=== PATIENT | female | born 1950 | race Caucasian/White ===

== ENCOUNTER 2017-09-25 16:39 | Emergency (ER) | payer MEDICARE, BC ==
[2017-09-25 17:43] VITALS: BP 136/72
--- NOTE | 2017-09-25 18:19 | UC ---
Skin Complaint HPI - HPI Summary HPI Summary: right upper ear and skin tenderness of the right roman catholic and face. There is some redness as well. no drainage from the Ear. She has had high sugars lately but it is improving with long acting insulin. - History of Current Complaint Chief Complaint: UCSkin Time Seen by Provider: 09/25/17 18:04 Stated Complaint: SWOLLEN GLANDS RIGHT SIDE/EAR PAIN Hx Obtained From: Patient, Family/Crab Catcher Hx Last Menstrual Period: n/a ?: No Onset/Duration: Gradual Onset, Lasting Days Skin Exposure Onset/Duration: Days Ago Timing: Constant Onset Severity: Mild Current Severity: Moderate Location: Ear (Right) Aggravating Factor(s): Touch Alleviating Factor(s): Nothing Associated Signs & Symptoms: Positive: Tenderness - Allergy/Home Medications Allergies/Adverse Reactions: Allergies Allergy/AdvReac Type Severity Reaction Status Date / Time broad spectrum antbiotics Allergy Vomiting Uncoded 09/25/17 17:43 Home Medications: Home Medications Insulin Glargine (Nf) [Toujeo Solostar Pen (NF)] 60 unit SUBCUT DAILY 09/25/17 [ History Confirmed 09/25/17] Review of Systems Skin: Other - tenderness and redness of the ear and the surrounding areas. All Other Systems Reviewed And Are Negative: Yes PMH/Surg Hx/FS Hx/Imm Hx Previously Healthy: No Endocrine History: Diabetes - Surgical History Surgical History: Yes Surgery Procedure, Year, and Place: Tonsillectomy. tubal ligation. gila. colon resection for benign polyp - Family History Known Family History: Positive: Other - no related skin infection history. - Social History Lives: With Family Alcohol Use: Rare Substance Use Type: None Smoking Status (MU): Former Smoker Type: Cigarettes When Did the Patient Quit Smoking/Using Tobacco: 2012 - Immunization History Most Recent Influenza Vaccination: yes 2017 Physical Exam Triage Information Reviewed: Yes Appearance: Well-Appearing, No Pain Distress, Obese Vital Signs: Initial Vital Signs Temp 98.9 F 09/25/17 17:37 Pulse 82 09/25/17 17:37 Resp 16 09/25/17 17:37 BP 136/72 09/25/17 17:37 Pulse Ox 98 09/25/17 17:37 Vital Signs Reviewed: Yes Eye Exam: Normal Eyes: Positive: Conjunctiva Clear ENT Exam: Other - right pinna tenderness and redness. there is some small pink skin and redness of the skin surrounding the ear. ENT: Positive: Normal ENT inspection, Pharynx normal, TMs normal. Negative: Pharyngeal erythema, Nasal congestion, TM bulging, TM dull, TM red, Tonsillar swelling, Tonsillar exudate, Trismus Neck exam: Normal Neck: Positive: Supple, Nontender, No Lymphadenopathy Respiratory Exam: Normal Respiratory: Positive: Chest non-tender, Lungs clear, Normal breath sounds, No respiratory distress, No accessory muscle use Cardiovascular Exam: Normal Cardiovascular: Positive: RRR, No Murmur, Pulses Normal Abdominal Exam: Normal Abdomen Description: Positive: Nontender, No Organomegaly, Soft Musculoskeletal Exam: Normal Musculoskeletal: Positive: Strength Intact, ROM Intact, No Edema Neurological Exam: Normal Neurological: Positive: Alert, Muscle Tone Normal. Negative: Fatigued Psychological: Positive: Normal Response To Family, Age Appropriate Behavior Skin Exam: Other - right ear redness. Course/Dx - Diagnoses Provider Diagnoses: right ear and roman catholic cellulitis. Discharge - Discharge Plan Condition: Good Disposition: HOME Prescriptions: Ciproflox/Dexameth OTIC.SUSP* [Ciprodex OTIC.SUSP*] 4 drop .SEE ORDER QID #1 btl DOXYcycline CAP(*) [DOXYcycline 100MG CAP(*)] 100 mg PO BID #20 cap Patient Education Materials: Cellulitis (ED) Referrals: Frank Crystal MD [Primary Care Provider] - 2 Days
== END 2017-09-25 18:19 | disposition home or self-care (01) ==
LOC: UCCORT 16:39
DX: H60.11 Cellulitis of right external ear (principal); E11.9 Type 2 diabetes mellitus without complications; Z88.1 Allergy status to other antibiotic agents; Z87.891 Personal history of nicotine dependence
CPT/HCPCS: 99212; G0463

== ENCOUNTER 2018-07-24 10:15 | Emergency (ER) | payer MEDICARE, BC ==
--- NOTE | 2018-07-24 10:33 | UC ---
Ear Complaint HPI - HPI Summary HPI Summary: 67 year old female with left ear complaint. LEFT EAR EXTERNAL SWELLING REDNESS X2 DAYS SOME SWELLING AROUND THE EAR, NO DRAINAGE, SLIGHTLY PAINFUL TO TOUCH. No fever. No hearing loss. No vertigo. Has had this a year ago and had to take antibiotics and it resolved the condition. Is using steroid topical at this time from PCP and not much help. [ End ] - History of Current Complaint Stated Complaint: LEFT EAR CONCERN Time Seen by Provider: 07/24/18 10:30 Hx Obtained From: Patient Hx Last Menstrual Period: n/a Onset/Duration: Gradual Onset Severity Initially: Mild Severity Currently: Mild - Allergies/Home Medications Allergies/Adverse Reactions: Allergies Allergy/AdvReac Type Severity Reaction Status Date / Time broad spectrum antbiotics Allergy Vomiting Uncoded 09/25/17 17:43 Home Medications: Home Medications Clobetasol 0.05% OINT* 1 applic TOPICAL BID PRN 07/24/18 [History Confirmed ] Fluocinolone Acetonide 1 drop BOTH EARS DAILY 07/24/18 [History Confirmed ] Insulin Glargine (Nf) [Toujeo Solostar Pen (NF)] 70 units INJ BEDTIME 07/24/18 [ History Confirmed 07/24/18] Liraglutide [Victoza 3-Obi] 1.8 mg INJ DAILY 07/24/18 [History Confirmed ] Mometasone NASAL (NF) [Nasonex (NF)] 2 spray BOTH NARES DAILY 07/24/18 [History Confirmed 07/24/18] Lead-3 Acid Ethyl Esters [Lovaza] 1 gm PO DAILY 07/24/18 [History Confirmed ] PMH/Surg Hx/FS Hx/Imm Hx Previously Healthy: Yes Endocrine History: Diabetes, Dyslipidemia Cardiovascular History: Hypertension - Surgical History Surgical History: Yes Surgery Procedure, Year, and Place: Tonsillectomy. tubal ligation. choley. colon resection for benign polyp - Family History Known Family History: Positive: Other - no related skin infection history. - Social History Lives: With Family Alcohol Use: Rare Substance Use Type: None Smoking Status (MU): Former Smoker Type: Cigarettes When Did the Patient Quit Smoking/Using Tobacco: 2012 - Immunization History Most Recent Influenza Vaccination: yes 2016 Review of Systems ENT: Ear Ache Is Patient Immunocompromised?: No All Other Systems Reviewed And Are Negative: Yes Physical Exam Triage Information Reviewed: Yes Appearance: Well-Appearing, No Pain Distress, Well-Nourished Vital Signs Reviewed: Yes Eye Exam: Normal ENT Exam: Normal ENT: Positive: TM bulging - some ear wax and ear canal swelling, TM dull - left , Other - right ear with dry excoriated skin left hamlet Left ear with diffuse swelling whole ear and mild swelling ear canal . some indurated skin proximal to the ear as well. left posterior mild lymph node involvement. tenderness to palpation of the ear.. Negative: Nasal congestion, Nasal drainage Neck exam: Normal Neck: Positive: 1 Respiratory Exam: Normal Cardiovascular Exam: Normal Musculoskeletal Exam: Normal Neurological Exam: Normal Psychological Exam: Normal Skin Exam: Normal Ear Complaint Course/Dx - Course Course Of Treatment: no fever. no discharge. no obvious mastoiditis. per pt history of bacterial infection of the ear previously requiring amox will start at this time and advise f/u with PCP and go to ED if sx worsen . she is aware and agree to plan and aware of SE fo meds. No hearing loss. pain is mild and mostly with palpation. can double her antihistamine as well as she states her allegy has been worsened as of late too . given info for mastoiditis to be aware of what to look for if Sx worsen . she is requesting antibiotics at this time and agreeable with plan and go to ED if any concerns. no red flags - Differential Dx/Diagnosis Differential Diagnosis/HQI/PQRI: Cerumen Impaction, Otitis Externa, Otitis Media , Perforated TM Provider Diagnoses: left external ear infection. serous otitis. cauliflower ear left Discharge - Sign-Out/Discharge Documenting (check all that apply): Patient Departure All imaging exams completed and their final reports reviewed: No Studies - Discharge Plan Condition: Good Disposition: HOME Prescriptions: Amoxicillin PO (*) [Amoxicillin 875 MG (*)] 875 mg PO BID 10 Days #20 tab Patient Education Materials: Serous Otitis Media (ED), Mastoiditis (ED) Referrals: Frank Crystal MD [Primary Care Provider] - 4 Days Additional Instructions: You are advised to start antibiotics for your infection and if your symptoms worsen please go to the emergency room - Billing Disposition and Condition Condition: GOOD Disposition: Home
[2018-07-24 10:39] VITALS: BP 156/68
== END 2018-07-24 11:06 | disposition home or self-care (01) ==
LOC: UCCORT 10:15
DX: H60.392 Other infective otitis externa, left ear (principal); H65.92 Unspecified nonsuppurative otitis media, left ear; M95.12 Cauliflower ear, left ear; Z88.1 Allergy status to other antibiotic agents; E11.9 Type 2 diabetes mellitus without complications; Z79.4 Long term (current) use of insulin; I10 Essential (primary) hypertension; Z87.891 Personal history of nicotine dependence
CPT/HCPCS: 99212; G0463

== ENCOUNTER 2021-02-22 10:24 | Inpatient (IN) ==
[2021-02-22] MEDS ORDERED: NS 0.9% 1000 ml BAG 500 ML IV ONE (10:33)
[2021-02-22 10:49] LABS: ABS Lymphocytes 0.2 10^3/ul (1.0-4.8); ABS Monocytes 0.4 10^3/ul (0-0.8); ABS Neutrophils 3.4 10^3/ul (1.5-7.7); Eosinophil % 0.5 %; Hematocrit 29 % (35-47); Hemoglobin 9.7 g/dL (12.0-16.0); Mean Corpuscular HGB Conc 34 g/dL (31-36); Mean Corpuscular Hemoglobin 27 pg (27-31); Mean Corpuscular Volume 81 fL (80-97); Nucleated Red Blood Cells % 0.1; Platelet Count 415 10^3/uL (150-450); Red Blood Count 3.55 10^6 /uL (3.70-4.87); Red Cell Distribution Width 19 % (10-15); White Blood Count 4.1 10^3/uL (3.5-10.8)
[2021-02-22] MEDS ORDERED: Iodixanol (CONTRAST) 320 MG/ML 100 ML SDV IV ONE (11:03)
[2021-02-22 11:23] LABS: ALT 18 U/L (7-52); AST 33 U/L (13-39); Albumin 3.9 g/dL (3.2-5.2); Albumin/Globulin Ratio 1.4 (1-3); Alkaline Phosphatase 51 U/L (34-104); Anion Gap 15 mmol/L (2-11); BUN/Creatinine Ratio 24.7 (8-20); Blood Urea Nitrogen 24 mg/dL (6-24); CO2 Carbon Dioxide 19 mmol/L (22-32); Calcium 8.8 mg/dL (8.6-10.3); Chloride 106 mmol/L (101-111); EGFR African American 68.9 (>60); EGFR Non-African American 56.9 (>60); Globulin 2.8 g/dL (2-4); Glucose 161 mg/dL (70-100); Magnesium 2.3 mg/dL (1.9-2.7); Potassium 3.9 mmol/L (3.5-5.0); Sodium 140 mmol/L (135-145); Total Protein 6.7 g/dL (6.4-8.9)
[2021-02-22 11:47] LABS: Influenza A Molecular Negative (Negative); Influenza B Molecular Negative (Negative)
[2021-02-22 11:51] LABS: Troponin I 0.75 ng/mL (<0.03)
[2021-02-22 12:30] LABS: TSH Ultra Thyroid Stim Horm 2.43 mcIU/mL (0.34-5.60)
[2021-02-22] MEDS ORDERED: HYDROcodone/ACETAMIN 5/325 mg TAB PO PRN (15:11)
[2021-02-22] MEDS ORDERED: Dextrose 50% Syringe 50 ml 25 GM/50 ML SYRINGE IV PUSH PRN (15:14)
[2021-02-22 15:41] LABS: C Reactive Protein 191.65 mg/L (<8.01)
[2021-02-22] MEDS ORDERED: Azithromycin 500 mg/250 ml NS 500 MG/250 ML BAG IVPB SCH (16:00)
[2021-02-22] MEDS ORDERED: Fluticasone NASAL SPRAY 50MCG 16 gm SPRAY BTL BOTH NARES PRN (16:15)
[2021-02-22 16:21] LABS: Troponin I 1.65 ng/mL (<0.03)
[2021-02-22 16:41] LABS: Glucose 142 mg/dL (70-100)
[2021-02-22] MEDS ORDERED: Furosemide 40 mg/4 ml IV VIAL IV SLOW PU ONE (16:56)
[2021-02-22] MEDS: Enoxaparin 40 MG/0.4 ML SYR SUBCUT SCH (17:46)
[2021-02-22] MEDS: cefTRIAXone 1 gm/50 mL NS BAG 1 GM/50 ML BAG IVPB SCH (18:29)
[2021-02-22] MEDS: DOXYcycline 100 MG in NS 0.9% 250 ml 250 ML IVPB SCH (18:32)
[2021-02-22] MEDS ORDERED: Heparin DRIP 25,000 UNITS BAG 25,000 UNITS/500 ML BAG IV SCH (19:00)
[2021-02-22] MEDS ORDERED: Heparin 5000 UNITS/ML 1 mL VIAL IV SCH (19:00)
[2021-02-22] MEDS ORDERED: Furosemide 40 mg/4 ml IV VIAL ONE (19:25)
[2021-02-22] MEDS ORDERED: Furosemide 40 mg/4 ml IV VIAL IV ONE (19:29)
[2021-02-22] MEDS: Insulin GLARGINE 100 un/ml 10 ml VIAL SUBCUT SCH (20:00)
[2021-02-22 20:21] LABS: Troponin I 1.04 ng/mL (<0.03)
[2021-02-22 20:35] LABS: Urine Appearance Cloudy; Urine Bilirubin Negative (Negative); Urine Blood Negative (Negative); Urine Color Straw; Urine Glucose 3+(>=500 mg/dL) (Negative); Urine Ketones Trace (Negative); Urine Nitrite Negative (Negative); Urine Protein Negative (Negative); Urine Specific Gravity 1.011 (1.010-1.030); Urine Urobilinogen Negative (Negative)
[2021-02-23 00:34] LABS: Calcium 7.9 mg/dL (8.6-10.3); EGFR African American 66.5 (>60); Potassium 3.3 mmol/L (3.5-5.0)
[2021-02-23] MEDS: KCL 20 MEQ/100 ML IVPREMIX 20 MEQ/100 ML BAG IV SCH ×2 (01:06→03:35)
[2021-02-23 03:42] LABS: ABS Eosinophils 0.1 10^3/ul (0-0.6); ABS Lymphocytes 0.2 10^3/ul (1.0-4.8); ABS Monocytes 0.6 10^3/ul (0-0.8); ABS Neutrophils 2.6 10^3/ul (1.5-7.7); Eosinophil % 2.5 %; Hematocrit 25 % (35-47); Hemoglobin 8.3 g/dL (12.0-16.0); Lymphocyte % 6.8 %; Mean Corpuscular HGB Conc 34 g/dL (31-36); Mean Corpuscular Hemoglobin 27 pg (27-31); Mean Corpuscular Volume 81 fL (80-97); Nucleated Red Blood Cells % 0.1; Platelet Count 391 10^3/uL (150-450); Red Blood Count 3.06 10^6 /uL (3.70-4.87); Red Cell Distribution Width 19 % (10-15); White Blood Count 3.5 10^3/uL (3.5-10.8)
[2021-02-23 03:56] LABS: BUN/Creatinine Ratio 31.3 (8-20); Calcium 7.9 mg/dL (8.6-10.3); EGFR African American 67.3 (>60); EGFR Non-African American 55.6 (>60); Potassium 4.2 mmol/L (3.5-5.0)
[2021-02-23 07:13] LABS: Magnesium 2.1 mg/dL (1.9-2.7)
[2021-02-23 07:18] LABS: Phosphorus 3.8 mg/dL (2.5-5.0)
[2021-02-23] MEDS: cefTRIAXone 1 gm/50 mL NS BAG 1 GM/50 ML BAG IVPB SCH (07:24)
[2021-02-23] MEDS: DOXYcycline 100 MG in NS 0.9% 250 ml 250 ML IVPB SCH (07:25)
[2021-02-23] MEDS ORDERED: Digoxin IV 0.5 MG/2 ML AMP (0.25 MG/ML) IV SLOW PU ONE ×2 (09:53→16:00)
[2021-02-23] MEDS ORDERED: Furosemide 40 mg/4 ml IV VIAL IV SLOW PU ONE (14:50)
[2021-02-23] MEDS ORDERED: Furosemide 40 mg/4 ml IV VIAL ONE (14:56)
[2021-02-23] MEDS: Enoxaparin 40 MG/0.4 ML SYR SUBCUT SCH (15:46)
[2021-02-23] MEDS: Insulin GLARGINE 100 un/ml 10 ml VIAL SUBCUT SCH (19:48)
[2021-02-24 04:29] LABS: ABS Eosinophils 0.1 10^3/ul (0-0.6); ABS Lymphocytes 0.2 10^3/ul (1.0-4.8); ABS Monocytes 0.5 10^3/ul (0-0.8); ABS Neutrophils 2.5 10^3/ul (1.5-7.7); Eosinophil % 2.1 %; Hematocrit 24 % (35-47); Hemoglobin 8.2 g/dL (12.0-16.0); Lymphocyte % 5.9 %; Mean Corpuscular HGB Conc 34 g/dL (31-36); Mean Corpuscular Hemoglobin 27 pg (27-31); Mean Corpuscular Volume 81 fL (80-97); Mean Platelet Volume 6.7 fL (7.4-10.4); Platelet Count 411 10^3/uL (150-450); Red Cell Distribution Width 19 % (10-15); White Blood Count 3.3 10^3/uL (3.5-10.8)
[2021-02-24 04:43] LABS: Calcium 8.1 mg/dL (8.6-10.3); Potassium 3.9 mmol/L (3.5-5.0)
[2021-02-24 04:48] LABS: BUN/Creatinine Ratio 44.4 (8-20); EGFR African American 75.1 (>60); EGFR Non-African American 62.1 (>60)
[2021-02-24] MEDS ORDERED: Digoxin IV 0.5 MG/2 ML AMP (0.25 MG/ML) IV SLOW PU ONE (07:26)
[2021-02-24 09:12] LABS: Magnesium 2.3 mg/dL (1.9-2.7)
[2021-02-24 09:17] LABS: Phosphorus 3.2 mg/dL (2.5-5.0)
[2021-02-24] MEDS ORDERED: Furosemide 100 mg/10 ml IV VIAL IV ONE (09:22)
[2021-02-24] MEDS ORDERED: HEPARIN 2 UNIT/ML IV ONE (11:01)
[2021-02-24] MEDS ORDERED: Rocuronium 50 mg VIAL 10 mg/ml 5 ml VIAL (50 mg) ONE (11:01)
[2021-02-24] MEDS ORDERED: Propofol 10 mg/ml 100 ML BTL 100 ML ONE (11:19)
[2021-02-24] MEDS ORDERED: Norepinephrine 16MCG/ML IVPRE 4,000 MCG/250 ML BAG IV ONE (11:19)
[2021-02-24] MEDS ORDERED: fentaNYL 250 mcg/5 ml 50 MCG/ML 5 ml VIAL (250 MCG) ONE (11:30)
[2021-02-24] MEDS ORDERED: Etomidate 40 mg/20 ml (2 MG/ML) 20 ml VIAL (40 mg) ONE (11:30)
[2021-02-24] MEDS ORDERED: Lorazepam PYXIS KEY ONE (11:38)
[2021-02-24] MEDS ORDERED: LORazepam 2 mg VIAL 1 ml ONE (11:39)
[2021-02-24] MEDS ORDERED: Iohexol 350 (CONTRAST) 200 ML MDV IV ONE ×2 (11:55→13:23)
[2021-02-24] MEDS ORDERED: VERAPAMIL 2.5 MG/ML 2 ML VIAL ** 5 mg/2 ml ONE (11:55)
[2021-02-24] MEDS ORDERED: nitroGLYCERIN DRIP 25,000 MCG/250 ML BTL ONE (11:55)
[2021-02-24] MEDS ORDERED: Heparin 1,000 UNIT/ML 10 ml (10,000 UNITS) CATHLAB/DIALYSIS ONE ×2 (11:55→14:27)
[2021-02-24] MEDS ORDERED: fentaNYL 100 mcg/2 ml 50 MCG/ML VIAL ONE (11:55)
[2021-02-24] MEDS ORDERED: Midazolam 5 mg/5 ml VIAL 1 mg/ml 5 ml VIAL (5 mg) ONE (11:55)
[2021-02-24] MEDS ORDERED: Lidocaine 1% VIAL 10 MG/ML VIAL ONE ×2 (11:55→13:00)
[2021-02-24] MEDS ORDERED: Propofol 10 mg/ml 100 ML BTL 100 ML IV SCH (12:00)
[2021-02-24] MEDS ORDERED: Norepinephrine 16MCG/ML IVPRE 4,000 MCG/250 ML BAG IV SCH (12:00)
[2021-02-24] MEDS ORDERED: LORazepam 2 mg VIAL 1 ml IV PUSH ONE (12:19)
[2021-02-24] MEDS ORDERED: Lorazepam PYXIS KEY PRN (12:19)
[2021-02-24 12:25] VITALS: BP 90/40
[2021-02-24] MEDS ORDERED: Heparin DRIP 25,000 UNITS BAG 25,000 UNITS/500 ML BAG ONE (13:31)
[2021-02-24 14:35] LABS: POC SO2 98 %
[2021-02-24 14:35] LABS: POC SO2 64 %
[2021-02-24 14:35] LABS: POC SO2 71 %
[2021-02-24 14:36] LABS: POC SO2 64 %
[2021-02-24] MEDS: fentaNYL INFUSION 50 MCG/ML 2,500 MCG/50 ML BAG IV SCH (14:40)
== END 2021-02-24 15:50 | disposition short-term general hospital (02) | DRG 270 ==
LOC: ED 10:24 → MED 15:05 → ICU 18:01
PROVIDERS: ADMIT Internal Medicine; ATTEND Internal Medicine Critical Care Medicine